=== PATIENT | male | born 1970 | race Caucasian/White ===

== ENCOUNTER 2020-01-18 14:58 | Emergency (ER) | payer OTHER ==
[2020-01-18 15:29] VITALS: BP 120/73
[2020-01-18] MEDS ORDERED: NORMAL SALINE 1000 ML 1,000 ML IV ONE (15:57)
--- NOTE | 2020-01-18 16:00 | ER Document Report ---
ED Medical Screen (RME) - General Chief Complaint: Altered Mental Status Stated Complaint: ALTERED MENTAL STATUS Time Seen by Provider: 01/18/20 15:48 Information source: Patient Notes: Patient presents stating that he was having shortness of breath for several hours this morning. Patient states that he took a puff on his inhaler started stumbling around and then passed out waking up in an ambulance. Patient states he is had a similar episode previously although states that he was told he just took too many hits on his inhaler. Patient denies any cough or chest pain. Patient does take chronic opioids and states that he took 30 mg of oxycodone before driving to work. Patient also reports a recent travel 3 weeks ago from [place] to [place] and then to [place]. I have greeted and performed a rapid initial assessment of this patient. A comprehensive ED assessment and evaluation of the patient, analysis of test results and completion of the medical decision making process will be conducted by additional ED providers. - Related Data Allergies/Adverse Reactions: No Known Allergies Allergy (Unverified 01/18/20 15:47) Physical Exam - Vital signs Vitals: Temp Pulse Resp BP Pulse Ox 98.3 F 118 H 20 120/73 95 01/18/20 15:27 01/18/20 15:27 01/18/20 15:27 01/18/20 15:27 01/18/20 15:27 - Cardiovascular Rhythm: Tachycardia Heart sounds: S1 appreciated, S2 appreciated - Neurological Forrest Coma Scale Eye Opening: Spontaneous Mik Coma Scale Verbal: Oriented Forrest Coma Scale Motor: Obeys Commands Mik Coma Scale Total: 15 Course - Vital Signs Vital signs: Temp Pulse Resp BP Pulse Ox 98.3 F 118 H 20 120/73 95 01/18/20 15:27 01/18/20 15:27 01/18/20 15:27 01/18/20 15:27 01/18/20 15:27
[2020-01-18 17:09] LABS: ABSOLUTE BASOPHILS # (AUTO) 0.1 10^3/uL (0.0-0.2); ABSOLUTE EOSINOPHILS # (AUTO) 0.1 10^3/uL (0.0-0.6); ABSOLUTE MONOCYTES (AUTO) 0.9 10^3/uL (0.1-1.4); BASOPHILS % (AUTO) 0.6 % (0-2); EOSINOPHILS % (AUTO) 1.2 % (0-6); HEMATOCRIT 44.6 % (37.9-51.0); HEMOGLOBIN 15.3 g/dL (13.5-17.0); LYMPHOCYTES % (AUTO) 8.2 % (13-45); MEAN CORPUSCULAR HEMOGLOBIN 30.9 pg (27.0-33.4); MEAN CORPUSCULAR HGB CONC 34.4 g/dL (32.0-36.0); MEAN CORPUSCULAR VOLUME 90 fl (80-97); MONOCYTES % (AUTO) 7.6 % (3-13); PLATELET COUNT 382 10^3/uL (150-450); RED BLOOD COUNT 4.96 10^6/uL (4.35-5.55); RED CELL DISTRIBUTION WIDTH 13.6 % (11.5-14.0); SEGMENTED NEUTROPHILS % (AUTO) 82.4 % (42-78); TOTAL CELLS COUNTED % (AUTO) 100 %; WHITE BLOOD COUNT 12.1 10^3/uL (4.0-10.5)
[2020-01-18 17:10] LABS: APPEARANCE,URINE CLEAR; BILIRUBIN,URINE NEGATIVE (NEGATIVE); COLOR,URINE COLORLESS; GLUCOSE, URINE NEGATIVE (NEGATIVE); KETONES,URINE NEGATIVE (NEGATIVE); LEUKOCYTE ESTERASE,URINE NEGATIVE (NEGATIVE); NITRITE,URINE NEGATIVE (NEGATIVE); PROTEIN,URINE NEGATIVE (NEGATIVE); URINE SPECIFIC GRAVITY 1.001; UROBILINOGEN,URINE NEGATIVE mg/dL (<2.0)
[2020-01-18 17:25] LABS: URINE AMPHETAMINES SCREEN NEGATIVE; URINE BARBITURATES SCREEN NEGATIVE; URINE BENZODIAZEPINES SCREEN NEGATIVE; URINE COCAINE SCREEN NEGATIVE; URINE MARIJUANA (THC) SCREEN NEGATIVE; URINE METHADONE SCREEN NEGATIVE; URINE PHENCYCLIDINE SCREEN NEGATIVE
--- NOTE | 2020-01-18 17:25 | RADIOLOGY REPORT (SQ) ---
EXAM DESCRIPTION: CHEST SINGLE VIEW IMAGES COMPLETED DATE/TIME: 01/18/2020 5:13 pm REASON FOR STUDY: sob, syncope COMPARISON: None. EXAM PARAMETERS: NUMBER OF VIEWS: One view. TECHNIQUE: Single frontal radiographic view of the chest acquired. RADIATION DOSE: NA LIMITATIONS: None. FINDINGS: LUNGS AND PLEURA: Lung volumes. No opacities, masses or pneumothorax. No pleural effusio n. MEDIASTINUM AND HILAR STRUCTURES: No masses. Contour normal. HEART AND VASCULAR STRUCTURES: Cardiomegaly. Pulmonary vascular redistribution (cephalization). BONES: No acute findings. HARDWARE: None in the chest. OTHER: No other significant finding. IMPRESSION: 1. Low lung volumes limits examination. No acute pulmonary consolidation. 2. Cardiomegaly. Pulmonary vascular redistribution (cephalization). TECHNICAL DOCUMENTATION: JOB ID: [id number] 2010 [employer]- All Rights Reserved Reading location - IP/workstation name: [email or web address]
[2020-01-18 17:26] LABS: ALKALINE PHOSPHATASE 62 U/L (38-126); ANION GAP 7 (5-19); ASPARTATE AMINO TRANSFERASE 29 U/L (17-59); BILIRUBIN,TOTAL 0.5 mg/dL (0.2-1.3); BLOOD UREA NITROGEN 20 mg/dL (7-20); CALCIUM 9.6 mg/dL (8.4-10.2); CARBON DIOXIDE 30 mmol/L (22-30); CHLORIDE 106 mmol/L (98-107); CREATINE KINASE 203 U/L (55-170); GLUCOSE 94 mg/dL (75-110); POTASSIUM 4.2 mmol/L (3.6-5.0)
--- NOTE | 2020-01-18 17:34 | EKG REPORT ---
SEVERITY:- ABNORMAL ECG - SINUS TACHYCARDIA ABNRM R PROG, CONSIDER ASMI OR LEAD PLACEMENT BORDERLINE T ABNORMALITIES, INFERIOR LEADS : Confirmed by: Allie Henry MD 18-Jan-2020 17:33:59
[2020-01-18 17:48] LABS: TROPONIN I 0.036 ng/mL
--- NOTE | 2020-01-18 18:17 | ER Document Report ---
ED Dizziness/Weakness - General Chief Complaint: Passed Out Prior to Arrival Stated Complaint: ALTERED MENTAL STATUS Time Seen by Provider: 01/18/20 15:48 Mode of Arrival: Medic Information source: Patient - HPI Notes: Patient presents after a syncopal episode. He states that approximately 10 minutes before the episode he used his inhaler and took a pain pill that he describes oxycodone. 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 He states he did not hurt himself when he fell down. He states he now feels back to his normal state of health and has no complaints. He denies any pain. Or shortness of breath. He states his asthma has been stable and he has not had any flareups of it recently. He has not recently had any chest pain cough cold or illnesses. Patient syncope was brief. Nothing appeared to make it better or worse. The exact cause is unknown at this time. There is obviously no radiation of the symptoms. They were moderate. - Related Data Allergies/Adverse Reactions: No Known Allergies Allergy (Unverified 01/18/20 15:47) Past Medical History - General Information source: Patient - Social History Smoking Status: Current Some Day Smoker Chew tobacco use (# tins/day): No Frequency of alcohol use: None Family History: Reviewed & Not Pertinent Patient has homicidal ideation: No Pulmonary Medical History: Reports: Hx Asthma Review of Systems - Review of Systems Constitutional: denies: Chills, Fever Cardiovascular: denies: Chest pain, Palpitations Respiratory: denies: Cough, Short of breath -: Yes All other systems reviewed and negative Physical Exam - Vital signs Vitals: Temp Pulse Resp BP Pulse Ox 98.3 F 118 H 20 120/73 95 01/18/20 15:27 01/18/20 15:27 01/18/20 15:27 01/18/20 15:27 01/18/20 15:27 Interpretation: Tachycardic - General General appearance: Appears well, Alert - HEENT Head: Normocephalic, Atraumatic Eyes: Normal Pupils: PERRL - Respiratory Respiratory status: No respiratory distress Chest status: Nontender Breath sounds: Normal Chest palpation: Normal - Cardiovascular Rhythm: Regular, Other - Patient was tachycardic on arrival according to EKG but he is no longer tachycardic on my exam. With a heart rate in the 80s. Heart sounds: Normal auscultation Murmur: No - Abdominal Inspection: Normal Distension: No distension Bowel sounds: Normal Tenderness: Nontender Organomegaly: No organomegaly - Back Back: Normal, Nontender - Extremities General upper extremity: Normal inspection, Nontender, Normal color, Normal ROM, Normal temperature General lower extremity: Normal inspection, Nontender, Normal color, Normal ROM, Normal temperature, Normal weight bearing. No: Rambo's sign - Neurological Neuro grossly intact: Yes Cognition: Normal Orientation: AAOx4 [place] Coma Scale Eye Opening: Spontaneous Mik Coma Scale Verbal: Oriented Mik Coma Scale Motor: Obeys Commands [place] Coma Scale Total: 15 Speech: Normal Motor strength normal: LUE, RUE, LLE, RLE Sensory: Normal - Psychological Associated symptoms: Normal affect, Normal mood - Skin Skin Temperature: Warm Skin Moisture: Dry Skin Color: Normal Course - Re-evaluation Re-evalutation: 01/18/20 18:14 Patient arrives after syncopal episode. It appears this may have been multifa ctorial as patient arrived diaphoretic and tachycardic but now feels back to normal. It appears patient may have been suffering from the heat and humidity in addition to having taken a recent narcotic pill. I do not find any evidence of arrhythmia. He does have some cardiomegaly on chest x-ray with some revascularization but patient obviously was not in pulmonary edema. He has been educated about these x-ray findings and the need to follow-up. D-dimer is negative and he has no other significant risk factors for pulmonary embolism. He has had no other recent illnesses. At this time it appears outpatient follow-up is the best course for this patient. - Vital Signs Vital signs: Temp Pulse Resp BP Pulse Ox 98.3 F 118 H 20 120/73 95 01/18/20 15:27 01/18/20 15:27 01/18/20 15:27 01/18/20 15:27 01/18/20 15:27 - Laboratory Result Diagrams: 01/18/20 16:30 01/18/20 16:30 Laboratory results interpreted by me: 01/18/20 01/18/20 16:30 16:30 WBC 12.1 H Lymph % (Auto) 8.2 L Absolute Neuts (auto) 10.0 H Seg Neutrophils % 82.4 H Creatine Kinase 203 H - Diagnostic Test Radiology reviewed: Image reviewed, Reports reviewed - EKG Interpretation by Me EKG shows normal: Sinus rhythm Rate: Tachycardia - 113 Rhythm: NSR [place]/QRS: No: Right axis deviation, Left axis deviation Discharge - Discharge Clinical Impression: Syncope and collapse, Cardiomegaly Condition: Stable Disposition: HOME, SELF-CARE Instructions: Syncopal Episode ([facility]) Additional Instructions: avoid caffeine and energy drinks. get plenty of sleep and exercise. 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 Forms: Return to Work Referrals: FREDERIC FIELD MD [ACTIVE STAFF] - Follow up in 3-5 days
== END 2020-01-18 18:27 | disposition home or self-care (01) ==
LOC: ER 14:58
DX: R55 Syncope and collapse (principal); R00.0 Tachycardia, unspecified; R61 Generalized hyperhidrosis; I51.7 Cardiomegaly; F17.200 Nicotine dependence, unspecified, uncomplicated; J45.909 Unspecified asthma, uncomplicated
CPT/HCPCS: 93005; 99285; 96360; 36415; 82550; 83735; 85025; 80053; 81001; 84484; 80307; 85379; 83880; 71045; 93010; J7030